=== PATIENT | female | born 1985 | race Two or more races ===

== ENCOUNTER 2021-09-04 09:29 | Emergency (ER) | payer OTHER, BC ==
[2021-09-04 10:26] VITALS: BP 129/72; PULSE 77; TEMP 98; BMI 22.1
[2021-09-04] MEDS ORDERED: FLUORESCEIN NA 1 EA STRIP ONE (11:45)
[2021-09-04] MEDS ORDERED: FLUORESCEIN NA 1 EA STRIP OS ONE (11:58)
[2021-09-04] MEDS ORDERED: ERYTHROMYCIN 0.5% OPHTHALMIC OINTMENT 3.5 GM TUBE OS ONE (11:59)
[2021-09-04] MEDS ORDERED: ERYTHROMYCIN 0.5% OPHTHALMIC OINTMENT 3.5 GM TUBE ONE (12:03)
== END 2021-09-04 12:19 | disposition home or self-care (01) ==
LOC: JERFT 09:29
DX: S05.00XA Injury of conjunctiva and corneal abrasion without foreign body, unspecified eye, initial encounter (principal); W26.2XXA Contact with edge of stiff paper, initial encounter
CPT/HCPCS: 99283-25